=== PATIENT | male | born 1990 | race African-American/Black ===

== ENCOUNTER 2018-12-23 22:17 | Emergency (ER) | payer MEDICAID ==
[~2018-12-23] VITALS: Ht 195.6 cm; Wt 111.0 kg
[2018-12-24] MEDS ORDERED: LIDOCAINE HCL/PF 1% 10 MG/ML 5ML VIAL IJ ONE (01:00)
[2018-12-24] MEDS ORDERED: BACITRACIN ZINC OINT UDPKT TOP ONE (01:00)
[2018-12-24] MEDS ORDERED: TETANUS, DIPHTHERIA, PERTUSSIS VAC/PF 0.5ML (>7YR OLD) IM ONE (01:00)
[2018-12-24] MEDS ORDERED: IBUPROFEN 600MG TABLET PO ONE (01:00)
[2018-12-24 04:35] VITALS: BP 131/78
== END 2018-12-24 04:36 | disposition home or self-care (01) ==
LOC: ER 22:17
DX: S01.312A Laceration without foreign body of left ear, initial encounter (principal); S09.8XXA Other specified injuries of head, initial encounter; F17.210 Nicotine dependence, cigarettes, uncomplicated; Y08.89XA Assault by other specified means, initial encounter; Y93.9 Activity, unspecified; Y92.9 Unspecified place or not applicable
CPT/HCPCS: 12013; 70486; 90471; 90715; 99284; J3490; Z7610